=== PATIENT | female | born 1990 | race Caucasian/White ===

== ENCOUNTER 2019-07-08 13:07 | Inpatient (IN) | payer OTHER ==
[~2019-07-08] VITALS: Ht 162.6 cm; Wt 110.7 kg
[2019-07-08] MEDS ORDERED: HUMALOG100 UNIT/1 (13:23)
[2019-07-08] MEDS ORDERED: ASPIR 8181 MG PO (13:24)
[2019-07-08] MEDS ORDERED: LANTUS SOL100 UNIT/1 SQ (13:24)
[2019-07-08] MEDS ORDERED: NEURONTIN800 MG PO (13:24)
[2019-07-08] MEDS ORDERED: NORVASC10 MG PO (13:24)
[2019-07-08] MEDS ORDERED: LASIX20 MG PO (13:24)
[2019-07-08] MEDS ORDERED: ZESTRIL10 M1 PO (13:25)
--- NOTE | 2019-07-08 13:25 | NUR ---
PACIENTE ALERTA Y ORIENTADA EN JUAN CROW ESFERAS, REFIERE NAVDEEP DOLOR PELVICO, VEGIJA HINCHADA Y TENER FALLO RENAL. ACOMPANANTE REFIERE QUE LA PACIENTE TIENE HX DE FALLO RENAL CATEGORIA 5, HBP, DIABETES, NEUROPATIA Y NO VIDENTE.
--- NOTE | 2019-07-08 14:22 | NUR ---
EVALUADA POR EL SE ORIENTA SOBRE TRATAMIENTO MEDICO POR LE EXTRAE MUESTRAS DE TAYLER Y SE ENVIAN AL LABORATORIP. SE MANTIENE EN OBSERVACION.
--- NOTE | 2019-07-08 23:51 | NUR ---
SE RECIBE FEMINA ALERTA Y ORIENTADA POR RCOW ESFERAS, EN CAMA CON BARANDAS SEGURAS Y ELEVADAS. AREA DE VENOPUNCION LOMAN DE EDEMA O ENROJECIMIENTO. RECIBIENDO IVF ORDENADO. SE MANTIENE EN ESPERA DE MEDICO CONSULTADO.
--- NOTE | 2019-07-09 07:04 | NUR ---
SE RECIBE PTE ALERTA Y ORIENTADA X3 ACOMPANADA DE FAMILAR. PTE SE OBSERVA E GRANT CON BARANDAS ELEVADAS. PTE SE OBSERVA CON H/L EL CUAL SE ENCUENTRA PATENTE OLMAN DE EDEMA Y ENROJECIMIENTO. PTE EN ESPERA DE CONSULTA CON MEDICINA INTERNA. PTE SE CONTINUA MONITORIANDO POR CAMBIOS.
--- NOTE | 2019-07-09 08:41 | NUR ---
SE LE NOTIFICA AL MANCILLA RESULTADOS CREAT 4.17 ,POTACIO 6.0 Y LE ORDENA KAYACELATE 30GR POSTAT Y GLUCONATO DE CALCIO 1GRAMO IV STAT. SE MANTIENE EN OBSERVACION.
[2019-07-25] MEDS ORDERED: FERROUS SULFAT325 M1 PO (16:03)
[2019-07-25] MEDS ORDERED: Lantus 1000 UNITS/10 SUBCUTANEO ×2 (16:03)
[2019-07-25] MEDS ORDERED: HUMALOG100 UNIT/1 SUBCUTANEO ×3 (16:03)
[2019-07-25] MEDS ORDERED: LEVOTHYROXINE25 MCG PO (16:03)
[2019-07-25] MEDS ORDERED: GABAPENTIN800 MG PO (16:03)
[2019-07-25] MEDS ORDERED: AMLODIPINE BESY10 MG PO (16:03)
[2019-07-25] MEDS ORDERED: ASA-EC81 MG PO (16:03)
== END 2019-07-25 16:45 | disposition home or self-care (01) | DRG 699 ==
LOC: ER 13:07 → SURH 07-09 09:57 → MEDJ 07-09 09:57 → SURH 07-09 11:59
PROVIDERS: Radiology Vascular & Interventional Radiology; ADMIT Internal Medicine
PROC: 02HV33Z Insertion of Infusion Device into Superior Vena Cava, Percutaneous Approach (ICD-10-PCS; 2019-07-09)
PROC: 06HM33Z Insertion of Infusion Device into Right Femoral Vein, Percutaneous Approach (ICD-10-PCS; 2019-07-10)
PROC: 5A1D70Z Performance of Urinary Filtration, Intermittent, Less than 6 Hours Per Day (ICD-10-PCS; 2019-07-10)
PROC: 05HM33Z Insertion of Infusion Device into Right Internal Jugular Vein, Percutaneous Approach (ICD-10-PCS; principal; 2019-07-13 16:00)
PROC: B54MZZZ Ultrasonography of Right Upper Extremity Veins (ICD-10-PCS; 2019-07-17)
PROC: 4A033R1 Measurement of Arterial Saturation, Peripheral, Percutaneous Approach (ICD-10-PCS; 2019-07-22)
PROC: 30233N1 Transfusion of Nonautologous Red Blood Cells into Peripheral Vein, Percutaneous Approach (ICD-10-PCS; 2019-07-25)
DX: E10.22 Type 1 diabetes mellitus with diabetic chronic kidney disease (principal); I12.0 Hypertensive chronic kidney disease with stage 5 chronic kidney disease or end stage renal disease; L97.412 Non-pressure chronic ulcer of right heel and midfoot with fat layer exposed; N17.8 Other acute kidney failure; E10.65 Type 1 diabetes mellitus with hyperglycemia; E10.319 Type 1 diabetes mellitus with unspecified diabetic retinopathy without macular edema; E10.621 Type 1 diabetes mellitus with foot ulcer; E87.5 Hyperkalemia; I25.10 Atherosclerotic heart disease of native coronary artery without angina pectoris; I87.8 Other specified disorders of veins; D63.1 Anemia in chronic kidney disease; E66.09 Other obesity due to excess calories; B95.61 Methicillin susceptible Staphylococcus aureus infection as the cause of diseases classified elsewhere; B95.2 Enterococcus as the cause of diseases classified elsewhere; N18.6 End stage renal disease; R31.0 Gross hematuria; Z79.4 Long term (current) use of insulin; Z99.2 Dependence on renal dialysis

== ENCOUNTER 2019-08-02 17:14 | Emergency (ER) | payer OTHER ==
[~2019-08-02] VITALS: Ht 157.5 cm; Wt 117.9 kg
[~2019-08-02 17:14] MED LIST: AMLODIPINE BESY10 MG PO; ASA-EC81 MG PO; ASPIR 8181 MG PO; FERROUS SULFAT325 M1 PO; GABAPENTIN800 MG PO; HUMALOG100 UNIT/1; HUMALOG100 UNIT/1 SUBCUTANEO; LANTUS SOL100 UNIT/1 SQ; LASIX20 MG PO; LEVOTHYROXINE25 MCG PO; Lantus 1000 UNITS/10 SUBCUTANEO; NEURONTIN800 MG PO; NORVASC10 MG PO; ZESTRIL10 M1 PO
== END 2019-08-03 13:45 | disposition home or self-care (01) ==
LOC: ER 17:14
DX: E11.22 Type 2 diabetes mellitus with diabetic chronic kidney disease (principal); I13.11 Hypertensive heart and chronic kidney disease without heart failure, with stage 5 chronic kidney disease, or end stage renal disease; N18.5 Chronic kidney disease, stage 5; N17.8 Other acute kidney failure; D63.1 Anemia in chronic kidney disease; E87.5 Hyperkalemia; E87.2 Acidosis; L97.511 Non-pressure chronic ulcer of other part of right foot limited to breakdown of skin; E11.42 Type 2 diabetes mellitus with diabetic polyneuropathy; N20.0 Calculus of kidney; E03.8 Other specified hypothyroidism